=== PATIENT | female | born 1950 | race African-American/Black ===

== ENCOUNTER 2025-02-21 10:13 | Outpatient (CLI) | payer MEDICARE, SELFPAY | END 2025-02-21 10:14 | disposition home or self-care (01) | LOC: AMB 02-24 18:50 | PROVIDERS: PCP Family Medicine; Visit Provider Emergency Medicine Emergency Medical Services | DX: R53.1 Weakness (principal); R47.81 Slurred speech; R29.810 Facial weakness | CPT/HCPCS: A0425; A0427 ==

== ENCOUNTER 2025-02-21 10:41 | Emergency (ER) | payer MEDICARE, SELFPAY ==
[2025-02-21] VITALS (14 sets, daily range): BP systolic 160–231; BP diastolic 91–176; PULSE 71–97; RESP 14–16; O2SAT 95–100
--- OUTSIDE RECORDS SUMMARY | 2025-02-21 10:44 | XMS_ITS | Clinical Summary ---
Author Organization [facility] Address [address] [place] [id number] Care Team Providers Care Applications Packager Name Role Phone Unavailable Primary Care Provider Unavailabl e Allergies Active Allergy Reactions Criticality Noted Date Comments Lisinopril Headache,Visual Disturbances 12/05/2018 Told she should not take this due to being Medications multivitamin-foli c acid 0.4 mg (MULTIPLE VITAMINS DAILY) tablet Take 1 tablet by mouth once daily. 0 3 Active cholecalciferol (Vitamin D-3) 2,000 unit capsule Take 1 Capsule (2,000 units) by mouth once daily. 0 1 Active Lnhum-[id number] venus Oil 1,000 mg (120 mg-180 mg) cap Take 1 Capsule (1,000 mg) by mouth. 0 1 Active amLODIPine (NORVASC) 10 mg tabletIndications :Essential hypertension TAKE 1 TABLET(10 MG) BY MOUTH EVERY DAY 30 Tablet 3 Active Active Problems Problem Noted Date Diagnosed Date Other hyperlipidemia 12/20/2017 Essential hypertension 12/20/2017 Type 2 diabetes mellitus without complication Overview (01/03/2025): Diagnosed in 06/2014 with 2 elevated fasting glucoses and an elevated screening A1C. Diagnosis Code replaced due to regulatory update Family History Medical History Relation Name Comments Cancer-prostate Brother 1 Cancer-prostate Brother 2 Heart Disease Father of [place] at 67 Diabetes Mother Diabetes Sister Cancer-breast No Family History Relation Name Status Comments Brother 1 Brother 2 Father Mother Sister Social History Tobacco Use Types Packs/Day Years Used Date Smoking Tobacco: Never Smokeless Tobacco: Never Tobacco Cessation:Counseling Given: Yes Alcohol Use Standard Drinks/Week Comments Yes 0 (1 standard drink = 0.6 oz pur e alcohol) occ PHQ-2 Answer Date Recorded PHQ-2 TOTAL SCORE 0 01/27/2022 Social Connections Answer Date Recorded Frequency of Communication with Friends and Fami ly 0 01/27/2022 Financial Resource Strain Answer Date R ecorded Difficulty of Paying Living Expenses 3 01/27/2022 Difficulty of Paying Living Expenses Not on file 01/27/2022 Food Insecurity Answer Date Recorded Worried About Running Out of Food in the Last Ye ar 1 01/27/2022 Transportation Needs Answer Date Record ed Lack of Transportation (Medical) 1 01/27/2022 Housing Stability Answer Date Recorded Unable to Pay for Housing in the Last Year 1 01/27/2022 Comments No Sex and Gender Information Value Date Recorded Sex Assigned at Not on file Legal Sex Female 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 Gender Identity Not on file Sexual Orientation Not on file Obstetrics History Last Filed Vital Signs Vital Sign Reading Time Taken Comments Blood Pressure 133/81 01/27/2022 9:41 AM CDT Pulse 66 01/27/2022 9:37 AM CDT Temperature 36.7 C (98 F) 01/27/2022 9:41 AM CDT Respiratory Rate - - Oxygen Saturation 100% 01/27/2022 9:37 AM CDT Inhaled Oxygen Concentration - - Weight 73 kg (161 lb) 01/27/2022 9:37 AM CDT Height 156.6 cm (5' 1.65) 01/27/2022 9:37 AM CD T Body Mass Index 29.78 01/27/2022 9:37 AM CDT Plan of Treatment Health Maintenance Due Date Last Done Comments Tetanus booster 10/21/1963 Hepatitis C screening for age 18-79 1970 Pneumococcal series for age 50+ (1 of 2 - PCV) 10/21/1971 Zoster (shingles) series for age 50+ (1 of 2) 2002 Fecal testing non-DNA (FIT,FOBT,iFOBT) for age 45-75 11/26/2022 11/26/2021, 01/30/2020, 12/04/2018, Additional history exists BMI (ht and wt on same day) for age 18+ 01/27/2023 01/27/2022, 11/19/2020, 12/05/2018, Additional history exists Depression screening for age 12+ 01/27/2023 01/27/2022, 11/19/2020, 12/05/2018, Additional history exists Medicare Wellness for age 65+ 01/28/2023 01/27/2022 Mammogram for age 45-75 02/21/2023 02/22/20 22, 09/08/2017, 07/13/2016, Additional history exists COVID-19 vaccine series (2024- season) 2024 Influenza Vaccine (#1) 2024 Lipids for age 45-75 01/27/2027 01/27/2022, 11/19/2020, 11/30/2018, Additional history exists RSV vaccine for adults or (1 - 1-dose 75+ series) 10/21/2027 DEXA/DXA scan for age 65+ Completed 02/21/2022 Hepatitis B series for 19+ Aged Out N o longer eligible based on patient's age to complete this topic Procedures Procedure Name Priority Date/Time Associated Diagnosis Comments XR DXA BONE DENSITY 2 SITES AXIAL Routine 02/21/2022 11:28 AM BUTTON FACING MACHINE OPERATOR Post-menopausal XR MAMMO BILAT SCREENING Routine 02/21/2022 10:51 AM BUTTON FACING MACHINE OPERATOR Visit for screening mammogram LIPID PANEL W REFLEX MEASURED LDL Routine 01/27/2022 11:04 AM CDT Hyperlipidemia, unspecified hyperlipidemia type OCCULT BLOOD IFOBT STOOL Routine 11/26/2021 9:02 AM CDT Screening for colorectal cancer from Last 3 Months or Most Recently Relevant to Health Maintenance Results * (ABNORMAL) XR DXA BONE DENSITY 2 SITES AXIAL (02/21/2022 11:28 AM BUTTON FACING MACHINE OPERATOR) Anatomical Region Laterality Modality Spine, HIPS, HIPL, HIPR Other Impressions 02/23/2022 4:08 PM BUTTON FACING MACHINE OPERATOR Osteopenia. RECOMMENDATIONS: The National Osteoporosis Foundation recommends pharmacologic treatment for patients with T-scores of -2.5 or less, patients with prior history of fragility fractures, or patients with 10-year probability of greater than 3% at hips or greater than 20% of suffering major osteoporotic fractures. Recommend continued optimization of calcium and vitamin D intake through dietary means and/or supplementation and regular exercise. Repeat scan recommended in 3-5 years. Cheryl Matthews PA-C [facility] 02/23/2022 Narrative 02/23/2022 4:08 PM BUTTON FACING MACHINE OPERATOR For Patients: Results are automatically released to your [facility] ([employer]) account once available, in compliance with federal regulations. This means that you may see your results before your provider has had a chance to review them. Please allow 2-3 business days for your provider to comment on the results. XR DXA Bone Mineral Density (BMD) EXAM LOCATION: [address] [address] PATIENT NAME: Jyotsna Baptiste DATE OF : 1950 EXAM DATE: 02/21/2022 REQUESTING PROVIDER: Jackie Powers MD GENDER AT : female HEIGHT: 5' 1.65 (01/27/2022) WEIGHT: 161 lb (01/27/2022) MENOPAUSAL STATUS: Postmenopausal RACE/ETHNICITY: Black or RISK FACTORS: Menopause < Age 40 CURRENT MEDICATION FOR BONE LOSS: NONE INDICATION: Initial scan for screening and Post-Menopause COMPARISON DATE(S): None DXA scans are compared to prior studies for a patient only when the two (or more) studies were performed on the same scanner. It is not possible to compare data generated on one scanner to data from another because there are not standards in DXA equipment. This applies even if the two scanners are made by the same electron microscopist. PROCEDURE: Dual-energy x-ray absorptiometry performed with routine technique. Reporting is completed in the form of a T-score. The T-score represents the standard deviation from peak bone mass based on young healthy adult. A Z-score is used for diagnosis in premenopausal women, and for men under the age of 50. FINDINGS: RESULT LUMBAR SPINE L1 - L4 BMD: 0.973 g/cm2 T-Score: - 1.8 Z-Score: - 1.1 Change from prior: None RESULTS FEMUR Left femoral neck BMD: 0.835 g/cm2 T-Score: - 1.5 Z-Score: - 0.9 Change from prior: None Right femoral neck BMD: 0.855 g/cm2 T-Score: - 1.3 Z-Score: - 0.7 Change from prior: None Left hip BMD: 0.809 g/cm2 T-Score: - 1.6 Z-Score: - 1.3 Change from prior: None Right hip BMD: 0.805 g/cm2 T-Score: - 1.6 Z-Score: - 1.3 Change from prior: None WHO criteria: Normal: T-score at or above -1 SD Osteopenia: T-score between -1.1 and -2.4 SD Osteoporosis: T-score at or below -2.5 SD FRAX RISK CALCULATION (USED FOR OSTEOPENIA ONLY): 10-year probability of major osteoporotic fracture: 4.2%. 10-year probability of hip fracture: 0.6%. us Jackie Powers MD DEXA Final Resul t * XR MAMMO BILAT SCREENING (02/21/2022 10:51 AM BUTTON FACING MACHINE OPERATOR) Anatomical Region Laterality Modality BREASTS, Breast Left, Breast Right Bilateral Mammography Impressions 02/22/2022 3:48 PM BUTTON FACING MACHINE OPERATOR There is no radiographic evidence for malignancy. Recommend annual mammograms. MAMMOGRAM ASSESSMENT: ACR 1 Negative PATIENTS: You will also receive a letter with your examination results in an easy to read format. If you have questions about your results, please contact your referring provider. Narrative 02/22/2022 3:48 PM BUTTON FACING MACHINE OPERATOR For Patients: As a result of the 21st Century Cures Act, medical imaging exams and procedure reports are released immediately into your electronic medical record. You may view this report before your referring provider. If you have questions, please contact your health care provider. XR MAMMO BILAT SCREENING [[id number]] CLINICAL HISTORY: This is an asymptomatic 71 y.o. patient. INDICATION FOR EXAM: Mammogram Screening. TECHNIQUE: CC & MLO views were obtained. This study was evaluated with the assistance of Computer-Aided Detection. COMPARISON FILM: Yes 09/08/17 [facility] 07/13/16 [facility] FINDINGS: The breasts are almost entirely fatty. There are no dominant masses, suspicious micro calcifications or areas of architectural distortion. Jackie Powers MD MAMMO Final Resul t * (ABNORMAL) LIPID PANEL W REFLEX MEASURED LDL (01/27/2022 11:04 AM CDT) CHOLESTEROL,TOTAL 274(H) 100 - 199 mg/dL 01/28/2022 2:48 AM CDT [facility] TRIGLYCERIDES 104 <150 mg/dL 01/28/2022 2:48 AM CDT [facility] HDL CHOLESTEROL 65 >40 mg/dL 2:48 AM CDT [facility] NON-HDL CHOLESTEROL 209(H) <145 mg/dl 01/28/2022 2:48 AM CDT [facility] CHOL/HDL RATIO 4.22 <4.50 01/28/2022 2:48 AM CDT [facility] LDL CHOLESTEROL 188(H) <=130 mg/dL 01/28/2022 2:48 AM CDT [facility] VLDL CHOLESTEROL 21 <=30 mg/dL 01/28/2022 2:48 AM CDT [facility] PROVIDER ORDERED STATUS RANDOM 01/28/2022 2:48 AM CDT [facility] Blood BLOOD SPECIMEN / Unknown Venipuncture / Unknown 01/27/2022 11:04 AM CDT 01/27/2022 11:05 AM CDT Jackie Powers MD CHEMISTRY Final Resul t [facility] [address] [place] [address], [place] * OCCULT BLOOD IFOBT STOOL (11/26/2021 9:02 AM CDT) STOOL BLOOD ,IFOBT Negative Negative 12/01/2021 11:56 AM CDT [facility] Stool STOOL SPECIMEN / Unknown Non-Blood / Unknown 11/26/2021 9:02 AM CDT 12/01/2021 9:02 AM CDT us Jackie Powers MD LABORATORY Final Resul t [facility] [address] [place] [address], [place] [phone] from Last 3 Months or Most Recently Relevant to Health Maintenance Insurance MEDICARE [place] ONLY [facility]
--- NOTE | 2025-02-21 10:45 | CRLHL7_ITS ---
For Patients: As a result of the Century Cures Act, medical imaging exams and procedure reports are released immediately into your electronic medical record. You may view this report before your referring provider. If you have questions, please contact your health care provider. Indication: Right facial droop and arm weakness 2.75 hours ago Technique: Volumetric multidetector CT images of the head were obtained without the administration of low osmolar intravenous contrast. Comparison: None available Findings: There is no intra-axial or extra-axial fluid collection. There is no mass effect or midline shift. There is age-related global cortical atrophy with mild likely normal variant asymmetry of the lateral ventricles with prominent right lateral ventricle and mildly hypoplastic left. There is severe confluent chronic small vessel disease change throughout the subcortical and periventricular white matter. There is suggestion of somewhat age-indeterminate lacunar change of the left basal ganglia. Additional loss of madrid-white differentiation involving the dnoxm-xrsufky-fwmp-left heads of the caudate nuclei are appreciated. The remaining brain parenchyma is preserved in attenuation and madrid-white differentiation. The orbits and their contents are grossly within normal limits. The bony calvarium is grossly intact. The paranasal sinuses are clear. The mastoid air cells are well aerated. Impression: Extensive chronic small vessel disease change within the subcortical and periventricular white matter with suggestion of subtle evolving lacunar infarct of the left basal ganglia as well as questionable loss of madrid-white differentiation involving the bilateral rkjjz-rlgejwr-kllo-left heads of the caudate nuclei. Otherwise no other acute intracranial abnormalities are appreciated. Findings were discussed with Dr. Izquierdo At 11:01 a.m. February 21, 2025 Please note that all CT scans at this facility use dose modulation, iterative reconstruction, and/or weight-based dosing when appropriate to reduce radiation dose to as low as reasonably achievable. Dictated by Rasheed Yin MD @ 02/21/2025 11:03:37 AM (Electronically Signed)
--- NOTE | 2025-02-21 10:48 | ED.GENADULT ---
HPI - General Adult General Chief complaint: Neuro Symptoms/Altered Deficit Stated complaint: stroke symptoms Time Seen by Provider: 02/21/25 10:45 History of Present Illness HPI narrative: This 74-year-old female comes in by ambulance with a prior to arrival stroke code initiation. The patient awoke at 7:15 a.m. and states then at about 8:00 a.m. she began to have right-sided weakness. She arrives here with complete hemiparesis on the right side with facial droop and no motor activity of her right upper and lower extremities. She has a history of diabetes and hypertension and does not take any medications. Her blood glucose prior to arrival was 390. She arrives with a systolic blood pressure around 260. I was able to evaluate the patient in the hallway as she was arriving and she went directly to CT scan of her head. I attempted to contact Stroke Neurology but there was no health community association manager working today and nurses were occupied. I did speak with Dr. Izquierdo after 5-10 minutes delay who evaluated the patient with tele stroke technology. During this time CT imaging returned showing no hemorrhagic stroke. The patient is a candidate for thrombolytics so arrangements are made for tenecteplase to be administered. I placed an order for 19 mg which was administered intravenously soon after the IV was established. The patient did receive 5 mg of labetalol which brought her blood pressure is down to around 180 but she went back up into the low 200s. She received repeated 5 mg doses totaling 20 mg but continued to have blood pressures above 200 for systolic reading. A nicardipine drip was initiated at [address] wanted [address] angio imaging of the head and neck and this was obtained. I did speak also with Dr. George, hospitalist at [facility], to make arrangements for transfer there. I did reexamine the patient who did not have any sign of bleeding with the thrombolytics but also did not show any obvious sign of improvement. The plan involved to where the receiving facility wanted her to come directly to the emergency department. Time spent in critical care of this patient was 30 minutes. Related Data Home Medications ?Medication ?Instructions ?Recorded ?Confirmed No Known Home Medications 02/21/25 02/21/25 Allergies Allergy/AdvReac Type Severity Reaction Status Date / Time No Known Drug Allergies Allergy Verified 02/21/25 12:00 [facility] Social History Smoking Status: Never smoker Do you use any of these nicotine containing products: None How often do you have a drink containing alcohol: monthly or less How often do you have six or more drinks on one occasion: Never AUDIT-C Alcohol total score: 1 Non-prescribed substance use: denies use service: No Exam Const: Vital Signs, click to edit/add: Vital Signs - 24 hr 02/21/25 10:45 02/21/25 11:00 02/21/25 11:10 Pulse Rate [Pulse Oximeter] 97 80 Respiratory Rate 16 16 Blood Pressure [Le ft Upper Arm] 187/93 H 189/113 H Pulse Oximetry 97 98 97 Oxygen Delivery Me thod Room Air Room Air 02/21/25 11:10 02/21/25 11:10 02/21/25 11:15 Pulse Rate [Pulse Oximeter] 85 81 Respiratory Rate 14 14 Blood Pressure [Le ft Upper Arm] 213/113 H 220/110 H Pulse Oximetry 99 98 Oxygen Delivery Me thod Room Air Room Air 02/21/25 11:27 02/21/25 11:30 02/21/25 11:45 Pulse Rate [Pulse Oximeter] 80 84 84 Respiratory Rate 16 14 14 Blood Pressure [Le ft Upper Arm] 213/115 H 231/176 H Pulse Oximetry 95 98 100 Oxygen Delivery Me thod Room Air Room Air Room Air 02/21/25 12:00 02/21/25 12:15 02/21/25 12:30 Pulse Rate [Pulse Oximeter] 97 71 77 Respiratory Rate 16 14 14 Blood Pressure [Le ft Upper Arm] 214/122 H 203/110 H 203/110 H Pulse Oximetry 100 100 100 Oxygen Delivery Me thod Room Air Room Air 02/21/25 12:45 02/21/25 12:55 02/21/25 13:00 Pulse Rate [Pulse Oximeter] 79 78 85 Respiratory Rate 16 16 16 Blood Pressure [Le ft Upper Arm] 194/111 H 175/102 H 172/100 H Pulse Oximetry 100 100 100 Oxygen Delivery Me thod Room Air Course Vital Signs Vital signs: Initial Vital Signs Pulse Rate 97 02/21/25 10:45 Pulse Rhythm Regular 02/21/25 10:45 Respiratory Rate 16 02/21/25 10:45 Respiratory Effort Normal, Spontaneous, Non-Labored 02/21/25 10:45 Respiratory Depth Normal 02/21/25 10:45 Blood Pressure 187/93 H 02/21/25 10:45 Blood Pressure Mean 124 H 02/21/25 10:45 Pulse Oximetry 97 02/21/25 10:45 Oxygen Delivery Method Room Air 02/21/25 10:45 Vital Signs Pulse Rate 97 02/21/25 10:45 Respiratory Rate 16 02/21/25 10:45 Blood Pressure 187/93 H 02/21/25 10:45 Pulse Oximetry 97 02/21/25 10:45 Oxygen Delivery Method Room Air 02/21/25 10:45 Pulse Rate 85 02/21/25 13:00 Respiratory Rate 16 02/21/25 13:00 Blood Pressure 172/100 H 02/21/25 13:00 Pulse Oximetry 100 02/21/25 13:00 Oxygen Delivery Method Room Air 02/21/25 13:00 Medications Administered Medications: Discontinued Medications Generic Name Dose Route Start Last Admin Trade Name Freq PRN Reason Stop Dose Admin Hydromorphone HCl 0.2 mg 02/21/25 13:07 02/21/25 13:17 Hydromorphone 0.5 Mg/0.5 Ml Inj IVP 02/21/25 13:08 0.2 mg ONCE ONE Administration Nicardipine/Sodium Chloride 5 mg in 50 mls @ 50 mls/hr 02/21/25 12:27 02/21/25 13:20 Nicardipine Infusion 0.1 Mg/Ml IV 25 mls/hr DIRECTED ROSIE Administration Protocol Labetalol HCl 5 mg 02/21/25 11:10 02/21/25 11:00 Labetalol Hcl 5 Mg/Ml Inj IVP 02/21/25 11:11 5 mg ONCE ONE Administration Labetalol HCl 5 mg 02/21/25 11:20 02/21/25 11:20 Labetalol Hcl 5 Mg/Ml Inj IVP 02/21/25 11:21 5 mg ONCE ONE Administration Labetalol HCl 5 mg 02/21/25 11:48 02/21/25 11:53 Labetalol Hcl 5 Mg/Ml Inj IVP 02/21/25 11:49 5 mg ONCE ONE Administration Labetalol HCl 5 mg 02/21/25 12:13 02/21/25 12:10 Labetalol Hcl 5 Mg/Ml Inj IVP 02/21/25 12:14 5 mg ONCE ONE Administration Tenecteplase 19 mg 02/21/25 11:10 02/21/25 11:15 Tenecteplase 5 Mg/Ml Inj IVP 02/21/25 11:11 19 mg ONCE ONE Administration Medical Decision Making Lab Data Labs: Lab Results 02/21/25 Range/Units 11:00 WBC 8.30 (4.50-11.00) K/uL RBC 4.83 (4.00-5.20) m/uL Hgb 13.8 (12.0-16.0) gm/dL Hct 42.5 (33.0-51.0) % MCV 88 (80-100) fL MCH 29 (26-34) pg MCHC 33 (32-36) gm/dL RDW Coeff of Nelda 13.0 (11.5-15.5) % Plt Count 228 (140-440) K/uL Neut % (Auto) 67.4 (42.0-72.0) % Lymph % (Auto) 28.0 (20-44) % Blair % (Auto) 4.0 (0.0-11.0) % Eos % (Auto) 0.4 (0.0-7.0) % Baso % (Auto) 0.1 (0.0-3.0) % Neut # (Auto) 5.60 (1.7-7.0) K/uL Lymph # (Auto) 2.32 (0.90-2.90) K/uL Blair # (Auto) 0.30 (0.00-0.90) K/UL Eos # (Auto) 0.03 (0.00-0.50) K/uL Baso # (Auto) 0.01 (0.00-0.30) K/uL Abs Immat Gran (auto) 0.01 (0.00-0.30) K/uL Imm/Tot Granulo (auto) 0.1 % Sodium 135 (135-149) mmol/L Potassium 3.9 (3.6-5.1) mmol/L Chloride 102 (96-114) mmol/L Carbon Dioxide 26 (20-32) mmol/L Anion Gap 7 (7-15) mEq/L BUN 15 (7-30) mg/dL Creatinine 0.8 (0.5-1.5) mg/dL Estimated GFR 78 ml/min Glucose 323 H (60-115) mg/dL Calcium 9.6 (8.4-10.6) mg/dL ECG Data Attestation: I personally reviewed and interpreted this ECG as follows: Interpretation: Normal sinus rhythm. Rate is 77 beats per minute. There are no ST or T-wave abnormalities. Critical Care Time Critical Care Time Critical Care Time: Yes Attestation: The patient required my highest level preparedness to intervene emergently and I personally spent this critical care time directly and personally managing the patient. This critical care time included: Obtaining a history; Examining the patient; Pulse oximetry; Ordering and reviewing of studies; Arranging urgent treatment with development of a management plan; Evaluation of patients response to treatment; Frequent reassessment discussions with other providers. This critical care time was performed to assess and manage the high probability of imminent life-threatening deterioration that could result in multiorgan failure. It was exclusive of separate billable procedures and treating other patients and teaching time. Total Critical Care Time in Minutes: 30 Discharge Plan Discharge Clinical Impression: Cerebrovascular accident [facility] Condition: Unchanged Prescriptions: No Action No Known Home Medications Stand Alone Forms: [email or web address] Info Instructions
[2025-02-21] MEDS: LABETALOL HCL 5 MG/ML inj IVP ×4 (11:00→12:10)
[2025-02-21 11:11] LABS: Hematocrit* 42.5 % (33.0-51.0); Hemoglobin* 13.8 gm/dL (12.0-16.0); Immature Granulocytes Abs Auto 0.01 K/uL (0.00-0.30); Immature Granulocytes Pct Auto 0.1 %; Lymphocytes Absolute Auto 2.32 K/uL (0.90-2.90); Mean Corpuscular HGB Conc 33 gm/dL (32-36); Mean Corpuscular Hemoglobin 29 pg (26-34); Mean Corpuscular Volume 88 fL (80-100); RDW Coefficient of Variation % 13.0 % (11.5-15.5); Red Blood Count* 4.83 m/uL (4.00-5.20); White Blood Count* 8.30 K/uL (4.50-11.00)
--- NOTE | 2025-02-21 11:11 | CT_ITS ---
Patient: KENNY MALDONADO Facility:?[facility] Patient ID:?[id number] Site Patient ID:?[id number]. Site :?1950 Study:?CT-Neck Angio Angio 95CC ISOVUE 370 STROKE CODE-02/21/2025 11:36:12 AM Ordering Physician:?Clint Toure Final Report: INDICATION: Acute stroke, right arm weakness. TECHNIQUE: CTA head using intravenous contrast with bolus tracking, 3D angiographic rendering using maximum intensity projection (MIP) and images permanently archived. CTA neck using intravenous contrast with bolus tracking, 3D angiographic rendering using maximum intensity projection (MIP) and images permanently archived. FINDINGS: CTA head: There is normal opacification of the intracranial vasculature. There is no large vessel occlusion or significant intracranial stenosis. No aneurysm is identified. CTA neck: There is no significant carotid artery stenosis or dissection. There is no significant vertebral artery stenosis or dissection. Degenerative changes are noted in the cervical spine. IMPRESSION: No acute intracranial abnormality at CTA. No significant carotid or vertebral artery stenosis or dissection. Please note that all CT scans at this facility use dose modulation, iterative reconstruction, and/or weight-based dosing when appropriate to reduce radiation dose to as low as reasonably achievable. Dictated by Kian Mon MD @ 02/22/2025 7:44:13 AM (Electronic Signature)
[2025-02-21] MEDS: TENECTEPLASE 5 MG/ML inj 19 MG IVP (11:15)
[2025-02-21 11:21] LABS: Chloride* 102 mmol/L (96-114); Potassium* 3.9 mmol/L (3.6-5.1); Sodium* 135 mmol/L (135-149)
[2025-02-21 11:23] LABS: Slide Review Reflex No
[2025-02-21 11:24] LABS: Anion Gap 7 mEq/L (7-15); Blood Urea Nitrogen* 15 mg/dL (7-30); Calcium* 9.6 mg/dL (8.4-10.6); Carbon Dioxide* 26 mmol/L (20-32); Creatinine* 0.8 mg/dL (0.5-1.5); Estimated Glomerular Filt Rate 78 ml/min; Glucose* 323 mg/dL (60-115)
== END 2025-02-21 13:38 | disposition short-term general hospital (02) ==
PROVIDERS: Emergency Provider Emergency Medicine Emergency Medical Services; PCP Family Medicine
DX: I63.9 Cerebral infarction, unspecified (principal); G81.91 Hemiplegia, unspecified affecting right dominant side; R29.810 Facial weakness; I10 Essential (primary) hypertension; E11.65 Type 2 diabetes mellitus with hyperglycemia; R29.712 NIHSS score 12
CPT/HCPCS: 36415; 70450; 70496; 70498; 80048; 85025; 93005; 94761; 96374; 96375; 96376; 99285; 99291; J1171; J2404; J3101; Q9967

== ENCOUNTER 2025-02-21 13:15 | Outpatient (CLI) | payer MEDICARE, SELFPAY | END 2025-02-21 13:16 | disposition home or self-care (01) | LOC: AMB 02-24 18:57 | PROVIDERS: PCP Family Medicine; Visit Provider Emergency Medicine Emergency Medical Services | DX: I63.9 Cerebral infarction, unspecified (principal) | CPT/HCPCS: A0425; A0427 ==